=== PATIENT | female | born 2000 | race Caucasian/White ===

== ENCOUNTER 2022-06-28 13:14 | Emergency (ER) | payer OTHER, SELFPAY ==
--- NOTE | 2022-06-28 14:34 | EXP.UTC ---
Discharge Plan Disposition Patient Disposition: Home, Self-Care Condition: Good Prescriptions Prescriptions: New methylprednisolone 4 mg Tablets,Dose Pack 4 mg PO DIRECTED Qty: 21 0RF Referrals Follow up/Referrals: Pricilla Chan APRN [Primary Care Provider] - See instructions Activity Restrictions/Add. Instructions Additional Instructions/Restrictions: Go home and rest. Rest for the next couple of days. No heavy lifting. No twisting. Take the medications as directed. Follow up with your regular doctor. GO TO THE ER FOR ANY WORSENING SYMPTOMS OR CONCERN, ESPECIALLY BOWEL OR BLADDER ISSUES, SADDLE AREA NUMBNESS, FEVER, ETC Clinical Impressions Clinical Impression: Paresthesia of left leg Stand Alone Forms Stand Alone Forms: Work/School Release Instructions Patient Instructions: DI for Numbness/Tingling Discharge ED Provider: Jignesh Hampton [facility] General Stated complaint: left leg pain like sharp needles poking her Time Seen by Provider: 06/28/22 14:34 History of Present Illness Provider Complaint: She states that for the past 1 day she has had decreased sensation of her left lower leg. She denies any injury. She states that she basically woke up feeling this way. She denies any other complaints. She does not take oral control. She does not have a personal or family history of blood clots or dvt. Related Data Previous Rx's Medication Instructions Recorded methylprednisolone 4 mg tablets in 4 mg PO DIRECTED #21 tabs 06/28/22 a dose pack Allergies Allergy/AdvReac Type Severity Reaction Status Date / Time No Known Allergies Allergy Verified 06/28/22 14:59 [facility] Social History Smoking Status: Never smoker alcohol intake: never current occupational status: employed Travel in the last 8 weeks: None ROS Obtained: Yes All systems reviewed & no additional complaints except as documented Constitutional Constitutional: Denies chills and Denies fever(s) Eyes Eyes: Denies eye discharge ENT Ears, Nose, Mouth, and Throat: Denies dizziness, Denies otalgia and Denies sore throat Cardiovascular Cardiovascular: Denies chest pain Respiratory Respiratory: Denies shortness of breath, Denies chest congestion, Denies cough, Denies stridor and Denies wheezing Gastrointestinal Gastrointestingal: Denies nausea or vomiting Musculoskeletal Musculoskeletal: Reports system reviewed and no additional complaints, except as documented and Denies arthralgias Integumentary/Breasts Skin/Breast: Denies rash Neurologic Neurologic: Reports as per HPI, Denies dizziness and Reports paresthesias Allergic/Immunologic Allergic/Immunologic: Denies wheezing Physical Exam General General appearance: alert and in no apparent distress Head Head exam: atraumatic, normocephalic and normal inspection Eye Eye exam: Present normal appearance, PERRL and EOMI ENT ENT exam: Present normal exam, normal oropharynx, mucous membranes moist, TM's normal bilaterally and normal external ear exam Neck Neck exam: Present normal inspection, full ROM and trachea midline; Absent meningismus or lymphadenopathy Chest Chest inspection: Present normal inspection and symmetric chest wall rise; Absent tenderness Respiratory Respiratory exam: Present normal lung sounds bilaterally; Absent respiratory distress Cardiovascular Cardiovascular exam: Present regular rate and normal rhythm; Absent JVD Abdominal Exam Abdominal exam: Present soft and normal bowel sounds; Absent distention, tenderness or guarding Extremities Exam Extremities exam: Present normal inspection, full ROM and normal capillary refill; Absent calf tenderness Back Exam Back exam: Present normal inspection; Absent tenderness Neurological Exam Neurological exam: Present alert, oriented X3, CN II-XII intact, normal gait and reflexes normal; Absent motor sensory deficit Expanded Neurological Exam
[2022-06-28 14:56] VITALS: BP 126/69; PULSE 88; RESP 16; TEMP 37.2; O2SAT 98; BMI 25.1
[2022-06-28 15:13] VITALS: BP 126/69; PULSE 88; RESP 16; TEMP 37.2
== END 2022-06-28 15:24 | disposition home or self-care (01) ==
PROVIDERS: Emergency Provider Nurse Practitioner Family; PCP Nurse Practitioner Family
DX: R20.2 Paresthesia of skin (principal)
CPT/HCPCS: 99212; G0463

== ENCOUNTER 2022-07-02 19:58 | Emergency (ER) | payer OTHER, SELFPAY ==
[2022-07-02 20:00] VITALS: BP 142/75; PULSE 82; RESP 16; TEMP 36.7; O2SAT 97; BMI 24.7
[2022-07-02 22:05] VITALS: BP 142/75; PULSE 82; RESP 16; TEMP 36.7; O2SAT 97
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
[2022-07-02 22:14] VITALS: BMI 24.7
[2022-07-02 22:16] LABS: POC Glucose,Bedside 86 (70-110)
[2022-07-02 22:33] LABS: Urine Pregnancy, HCG Qual. Negative (Negative)
[2022-07-02 23:16] VITALS: BP 134/71; BP 142/75; PULSE 74; PULSE 82; RESP 16; TEMP 36.7; O2SAT 97; O2SAT 99; BMI 24.7
== END 2022-07-02 23:27 | disposition home or self-care (01) ==
PROVIDERS: Emergency Provider Emergency Medicine; PCP Nurse Practitioner Family
DX: S16.1XXA Strain of muscle, fascia and tendon at neck level, initial encounter (principal); S29.019A Strain of muscle and tendon of unspecified wall of thorax, initial encounter; V89.2XXA Person injured in unspecified motor-vehicle accident, traffic, initial encounter; W55.32XA Struck by other hoof stock, initial encounter
CPT/HCPCS: 70450; 71046; 72125; 72128; 73030; 81025; 82962; 99285